=== PATIENT | male | born 1965 | race Caucasian/White ===

== ENCOUNTER 2019-05-03 05:54 | Observation (INO) | payer BC ==
[2019-05-03 06:33] LABS: ABSOLUTE BASOPHILS # (AUTO) 0.1 10^3/uL (0.0-0.2); ABSOLUTE EOSINOPHILS # (AUTO) 0.2 10^3/uL (0.0-0.6); ABSOLUTE MONOCYTES (AUTO) 0.4 10^3/uL (0.1-1.4); ABSOLUTE NEUT (AUTO) 3.2 10^3/uL (1.7-8.2); BASOPHILS % (AUTO) 1.1 % (0-2); EOSINOPHILS % (AUTO) 3.4 % (0-6); HEMATOCRIT 46.1 % (37.9-51.0); HEMOGLOBIN 16.1 g/dL (13.5-17.0); LYMPHOCYTES % (AUTO) 33.9 % (13-45); MEAN CORPUSCULAR HEMOGLOBIN 31.5 pg (27.0-33.4); MEAN CORPUSCULAR HGB CONC 34.9 g/dL (32.0-36.0); MEAN CORPUSCULAR VOLUME 90 fl (80-97); MONOCYTES % (AUTO) 6.8 % (3-13); PLATELET COUNT 282 10^3/uL (150-450); RED BLOOD COUNT 5.11 10^6/uL (4.35-5.55); RED CELL DISTRIBUTION WIDTH 14.6 % (11.5-14.0); SEGMENTED NEUTROPHILS % (AUTO) 54.8 % (42-78); TOTAL CELLS COUNTED % (AUTO) 100 %; WHITE BLOOD COUNT 5.8 10^3/uL (4.0-10.5)
--- NOTE | 2019-05-03 06:44 | RADIOLOGY REPORT (SQ) ---
EXAM DESCRIPTION: XR CHEST 1 VIEW COMPLETED DATE/TME: 05/03/2019 06:12 CLINICAL HISTORY: 54 years, Male, dyspnea, h/o copd COMPARISON: None. NUMBER OF VIEWS: 1 TECHNIQUE: Portable chest LIMITATIONS: None. FINDINGS: The heart size is normal. Underlying emphysema. Scarring in the lung bases. No pneumothorax IMPRESSION: Underlying emphysema. copyright 2010 [employer]- All Rights Reserved
[2019-05-03 06:54] LABS: ALBUMIN 4.6 g/dL (3.5-5.0); ALKALINE PHOSPHATASE 84 U/L (38-126); ANION GAP 10 (5-19); ASPARTATE AMINO TRANSFERASE 27 U/L (17-59); BILIRUBIN,DIRECT 0.1 mg/dL (0.0-0.4); BILIRUBIN,TOTAL 0.5 mg/dL (0.2-1.3); BLOOD UREA NITROGEN 12 mg/dL (7-20); CARBON DIOXIDE 27 mmol/L (22-30); CHLORIDE 104 mmol/L (98-107); GLUCOSE 118 mg/dL (75-110); POTASSIUM 4.5 mmol/L (3.6-5.0); TOTAL PROTEIN 7.6 g/dL (6.3-8.2)
[2019-05-03 07:05] LABS: NT PRO BNP 31 pg/mL (<125)
[2019-05-03 07:06] LABS: TROPONIN I < 0.012 ng/mL
--- NOTE | 2019-05-03 07:34 | ER Document Report ---
Entered by MAURI HERRERA SCRIBE 05/03/19 0613 Acting as scribe for:KATHY HAMILTON IV, MD ED Respiratory Problem - General Chief Complaint: Breathing Difficulty Stated Complaint: DIFFICULTY BREATHING Time Seen by Provider: 05/03/19 06:07 Mode of Arrival: Medic Information source: Patient Notes: Patient is a 54-year-old male with COPD that presents to the emergency department today with complaints of shortness of breath. Patient states that his shortness of breath began approximately x4 days ago but he adds that it became much worse this morning when he woke up. Patient called 911 yesterday and EMS went to his house but he did not want to be brought here at that time. Patient states this morning when he woke up he did a home nebulizer treatment and then called EMS. EMS states on arrival the patient had a room air oxygen saturation of 86%. EMS administered 3 DuoNeb treatments, 2 g of magnesium, and [facility] Pertinent PMHx: COPD PCP: Dr. Herrera TRAVEL OUTSIDE OF THE [place] IN LAST 30 DAYS: No - Related Data Allergies/Adverse Reactions: No Known Allergies Allergy (Unverified 05/03/19 06:13) Home Medications: Albuterol Past Medical History - General Information source: Patient - Social History Smoking Status: Smoker,Current Status Unk Frequency of alcohol use: None Drug Abuse: None Lives with: Family Family History: COPD Patient has suicidal ideation: No Patient has homicidal ideation: No Pulmonary Medical History: Reports: Hx COPD Review of Systems - Review of Systems Constitutional: No symptoms reported EENT: No symptoms reported Cardiovascular: denies: Chest pain Respiratory: See HPI, Short of breath Gastrointestinal: No symptoms reported Genitourinary: No symptoms reported Male Genitourinary: No symptoms reported Musculoskeletal: No symptoms reported Skin: No symptoms reported Hematologic/Lymphatic: No symptoms reported Neurological/Psychological: No symptoms reported -: Yes All other systems reviewed and negative Physical Exam - Vital signs Vitals: Resp Pulse Ox 28 H 100 05/03/19 05:55 05/03/19 05:55 - Notes Notes: Physical Exam: General: Alert, appears acutely short of breath, on bi-pap. HEENT: Normocephalic. Atraumatic. PERRL. Extraocular movements intact. Oropharynx clear. Neck: Supple. Non-tender. Respiratory: Moderate respiratory distress, accessory muscle usage. On Bi-pap, diminished breath sounds bilaterally. Cardiovascular: Regular rate and rhythm. Abdominal: Normal Inspection. Non-tender. No distension. Normal Bowel Sounds. Back: No gross abnormalities. Extremities: Moves all four extremities. Upper extremities: Normal inspection. Normal ROM. Lower extremities: Normal inspection. No edema. Normal ROM. Neurological: Normal cognition. AAOx4. Normal speech. Psychological: Normal affect. Normal Mood. Skin: Warm. Dry. Normal color. Course - Re-evaluation Re-evalutation: 05/03/19 07:[address] Herrera about potential admission 05/03/19 07:40 Awaiting return call from Dr. Herrera - Vital Signs Vital signs: Temp Pulse Resp BP Pulse Ox 97.6 F 97 20 113/79 100 05/03/19 06:13 05/03/19 06:04 05/03/19 08:00 05/03/19 08:00 05/03/19 08:00 - Laboratory Result Diagrams: 05/03/19 06:20 05/03/19 06:20 Laboratory results interpreted by me: 05/03/19 05/03/19 06:20 06:20 RDW 14.6 H Glucose 118 H - EKG Interpretation by Me Additional EKG results interpreted by me: 05/03/19 08:52 EKG performed on 04/02/2019 at 0604 hrs. was interpreted by this MD. Findings: Normal sinus rhythm, heart rate 99 normal axis, P waves preceding QRS complexes, narrow QRS present, ST segments nonspecific. Impression normal sinus rhythm with nonspecific ST segments. Discharge - Discharge Clinical Impression: COPD with exacerbation Condition: Good Disposition: ADMITTED INPATIENT Admitting Provider: Javier Unit Admitted: IMCU I personally performed the services described in the documentation, reviewed and edited the documentation which was dictated to the scribe in my presence, and it accurately records my words and actions.
--- NOTE | 2019-05-03 11:52 | EKG REPORT ---
SEVERITY:- OTHERWISE NORMAL ECG - SINUS TACHYCARDIA : Confirmed by: Maria Del Carmen Alvarez MD 03-May-2019 11:51:20
[2019-05-03 14:14] LABS: ARTERIAL BLOOD BASE EXCESS -1.3 mmol/L; ARTERIAL BLOOD H2CO3 1.11 mmol/L (1.05-1.35); ARTERIAL BLOOD HCO3 22.9 mmol/L (20-24); ARTERIAL BLOOD O2 SATURATION 92.1 % (94-98); ARTERIAL BLOOD PCO2 36.9 mmHg (35-45); ARTERIAL BLOOD PH 7.41 (7.35-7.45)
[2019-05-03 14:18] LABS: ARTERIAL BLOOD FIO2 ROOM AIR 2
[2019-05-03] MEDS ORDERED: DIPHENHYDRAMINE HCL 50 MG/ML VIAL ONE (15:08)
[2019-05-03] MEDS ORDERED: FAMOTIDINE INJ/PF 20 MG/2 ML SDV IV ONE ×2 (15:09→15:30)
[2019-05-03] MEDS ORDERED: DIPHENHYDRAMINE HCL 50 MG/ML VIAL IV ONE (15:30)
--- NOTE | 2019-05-03 16:05 | PDOC H&P ---
History of Present Illness Admission Date/PCP: 05/03/19 08:59 History of Present Illness: ADELSO PATTON is a 54 year old male, he came to the emergency room for evaluation of shortness of breath, in the emergency room he was treated, he required noninvasive positive pressure ventilation in the ER, he was treated with bronchodilators, IV steroids, the ED physician felt patient needed to be admitted to the hospital for further management of his symptoms. The arterial blood gas on ambient air, pH 7.4, PO2 62, PCO2 36.9, bicarbonate 22.9, he has slight hypoxemia, I reviewed the chest x-ray he has flattened diaphragm overexpanded lung consistent with emphysema. CT angiogram of the chest was obtained, It demonstrated a large bullae at the apex of the right lung, there was no pulmonary embolus it showed severe bilateral emphysema. Patient came in this morning, when I saw him on the floor, he was comfortable, not in any respiratory distress. I believe he could be discharged home today he was again advised of the need for complete tobacco cessation, he told me that he has stop ped smoking Past Medical History Pulmonary Medical History: Reports: Chronic Obstructive Pulmonary Disease (COPD) Social History Lives with: Family Smoking Status: Former Smoker Electronic Cigarette use?: No Number of Years Smokin Last Time Smoked: 10/16/2018 Frequency of Alcohol Use: Occasional Hx Recreational Drug Use: No Hx Prescription Drug Abuse: No - Advance Directive Resuscitation Status: Full Code Family History Family History: COPD Parental Family History Reviewed: Yes Children Family History Reviewed: Yes Sibling(s) Family History Reviewed.: Yes Medication/Allergy Home Medications: Albuterol Sulfate [Albuterol Sulfate Hfa] 2 puff IH Q4HP PRN 05/03/19 Albuterol Sulfate [Ventolin 0.083% Neb 2.5 mg/3 mL Ampul] 3 ml NEB RTQ6HP PRN 05/03/19 Fluticasone/Umeclidin/Vilanter [Trelegy 100-62.5-25 Mcg Ellipta 14 Dose/Dpi] 1 each IH DAILY 05/03/19 Nicotine [Nicoderm 21 mg/24 Hr Transderm Patch] 1 patch TD DAILY 05/03/19 Polyethylene Glycol 3350 [Miralax Powder 17 gm/Packet] 1 packet PO DAILY 05/03/19 Psyllium Husk (with Sugar) [Metamucil Packet] 3.4 gm PO DAILY 05/03/19 Roflumilast [Daliresp 500 Mcg Tablet] 500 mcg PO DAILY 05/03/19 Allergies/Adverse Reactions: No Known Allergies Allergy (Unverified 05/03/19 06:13) Review of Systems Constitutional: ABSENT: chills, fever(s), headache(s), weight gain, weight loss Eyes: ABSENT: visual disturbances Ears: ABSENT: hearing changes Cardiovascular: ABSENT: chest pain, dyspnea on exertion, edema, orthropnea, palpitations Respiratory: PRESENT: dyspnea. ABSENT: cough, hemoptysis Gastrointestinal: ABSENT: abdominal pain, constipation, diarrhea, hematemesis, hematochezia, nausea, vomiting Genitourinary: ABSENT: dysuria, hematuria Musculoskeletal: ABSENT: joint swelling Integumentary: ABSENT: rash, wounds Neurological: ABSENT: abnormal gait, abnormal speech, confusion, dizziness, focal weakness, syncope Psychiatric: ABSENT: anxiety, depression, homidical ideation, suicidal ideation Endocrine: ABSENT: cold intolerance, heat intolerance, menstrual abnormalities, polydipsia, polyuria Hematologic/Lymphatic: ABSENT: easy bleeding, easy bruising, lymphadenopathy Physical Exam Vital Signs: Temp Pulse Resp BP Pulse Ox 97.9 F 94 19 104/68 95 05/03/19 11:45 05/03/19 14:00 05/03/19 11:45 05/03/19 11:45 05/03/19 11:59 Intake & Output 05/02/19 05/03/19 05/04/19 06:59 06:59 06:59 Weight 76.7 kg 75.8 kg General appearance: PRESENT: no acute distress, well-developed, well-nourished Head exam: PRESENT: atraumatic, normocephalic Eye exam: PRESENT: conjunctiva pink, EOMI, PERRLA. ABSENT: scleral icterus Ear exam: PRESENT: normal external ear exam Mouth exam: PRESENT: moist, tongue midline Neck exam: PRESENT: full ROM. ABSENT: carotid bruit, JVD, lymphadenopathy, thyromegaly Cardiovascular exam: PRESENT: RRR. ABSENT: diastolic murmur, rubs, systolic murmur Pulses: PRESENT: normal dorsalis pedis pul, +2 pedal pulses bilateral Vascular exam: PRESENT: normal capillary refill GI/Abdominal exam: PRESENT: normal bowel sounds, soft. ABSENT: distended, guarding, mass, organolmegaly, rebound, tenderness Rectal exam: PRESENT: deferred Neurological exam: PRESENT: alert, awake, oriented to person, oriented to place, oriented to time, oriented to situation, CN II-XII grossly intact. ABSENT: motor sensory deficit Psychiatric exam: PRESENT: appropriate affect, normal mood. ABSENT: homicidal ideation, suicidal ideation Skin exam: PRESENT: dry, intact, warm. ABSENT: cyanosis, rash Results Laboratory Results: 05/03/19 06:20 05/03/19 06:20 05/03/19 05/03/19 05/03/19 06:20 06:20 13:50 WBC 5.8 RBC 5.11 Hgb 16.1 Hct 46.1 MCV 90 MCH 31.5 MCHC 34.9 RDW 14.6 H Plt Count 282 Seg Neutrophils % 54.8 Carbonic Acid 1.11 HCO3/H2CO3 Ratio 20:1 ABG pH 7.41 ABG pCO2 36.9 ABG pO2 62.0 L ABG HCO3 22.9 ABG O2 Saturation 92.1 L ABG Base Excess -1.3 FiO2 ROOM AIR 2 Sodium 140.8 Potassium 4.5 Chloride 104 Carbon Dioxide 27 Anion Gap 10 BUN 12 Creatinine 1.09 Est GFR ( Amer) > 60 Glucose 118 H Calcium 10.0 Total Bilirubin 0.5 AST 27 Alkaline Phosphatase 84 Total Protein 7.6 Albumin 4.6 05/03/19 06:20 Troponin I < 0.012 NT-Pro-B Natriuret Pep 31 Impressions: Chest X-Ray 05/03/19 06:12 IMPRESSION: Underlying emphysema. copyright 2010 [employer]- All Rights Reserved Assessment & Plan - Diagnosis (1) COPD with exacerbation Is this a current diagnosis for this admission?: Yes Plan: Patient was admitted for COPD with acute exacerbation, on auscultation of his lung there is no wheezing CTA did not show any pulmonary embolism there is no focal consolidation to suggest pneumonia patient will be discharged home to [facility]
--- NOTE | 2019-05-03 16:13 | RADIOLOGY REPORT (SQ) ---
EXAM DESCRIPTION: CTA CHEST COMPLETED DATE/TIME: 05/03/2019 3:43 pm REASON FOR STUDY: hypoxemia r/o PE . Shortness of breath. COMPARISON: Chest x-ray 05/03/2019. TECHNIQUE: CT scan of the chest performed using helical scanning technique with dynamic intravenous contrast injection. Images reviewed with lung, soft tissue and bone windows. Reconstructed coronal and sagittal MPR images reviewed. Additional 3 dimensional post-processing performed to develop Maximal Intensity Projection images (TX P). All images stored on PACS. All CT scanners at this facility use dose modulation, iterative reconstruction, and/or weight based d osing when appropriate to reduce radiation dose to as low as reasonably achievable (ALARA). [facility]: Dose Right [facility]: CareDose [facility]: Dose Right [facility]: Teradose 4D [facility]: iClinical CONTRAST TYPE AND DOSE: contrast/concentration: Isovue 350.00 mg/ml; Total Contrast Delivered: 61.0 ml; Total Saline Delivered: 80.0 ml Contrast bolus adequate for pulmonary arteries and aorta. RENAL FUNCTION: Creatinine 1.09 RADIATION DOSE: CT Rad equipment meets quality standard of care and radiation dose reduction techniq ues were employed. CTDIvol: 14.3 - 26.4 mGy. DLP: 574 mGy-cm. . LIMITATIONS: None. FINDINGS: LUNGS AND PLEURA: There are bilateral emphysematous changes. There is a 9.5 cm bulla at t he right lung apex. No consolidation, pneumothorax or pleural effusion. AORTA AND GREAT VESSELS: No thoracic aortic aneurysm or acute dissection. HEART: No pericardial effusion. No significant coronary artery calcifications. PULMONARY ARTERIES: No emboli visualized in the main pulmonary arteries or the segmental branches. HILAR AND MEDIASTINAL STRUCTURES: No identified masses or abnormal nodes. HARDWARE: None in the chest. UPPER ABDOMEN: No significant findings. Limited exam. THYROID AND OTHER SOFT TISSUES: No masses. No adenopathy. BONES: No acute or significant finding. 3D MIPS: Confirm above findings. IMPRESSION: No pulmonary emboli. Emphysema with a large bulla at the right lung apex. COMMENT: Quality ID # [id number]: Final reports with documentation of one or more dose reduction techniques (e.g., Automated exposure control, adjustment of the mA and/or kV according to patient size, use of iterative reconstruction technique) TECHNICAL DOCUMENTATION: JOB ID: [id number] 2011 [employer]- All Rights Reserved Reading location - IP/workstation name: [email or web address]
[2019-05-03 16:20] VITALS: BP 119/78
--- NOTE | 2019-05-03 17:10 | PDOC DISCHARGE SUMMARY ---
Impression - Admit/DC Date/PCP Admission Date/Primary Care Provider: 05/03/19 08:59 Discharge Date: 05/03/19 - Discharge Diagnosis (1) COPD with exacerbation Is this a current diagnosis for this admission?: Yes - Additional Information Resuscitation Status: Full Code Discharge Activity: Activity As Tolerated Prescriptions: Prednisone 40 mg PO DAILY #7 tablet Azithromycin [Zithromax] 250 mg PO DAILY #7 tablet Home Medications: Albuterol Sulfate [Albuterol Sulfate Hfa] 2 puff IH Q4HP PRN 05/03/19 Albuterol Sulfate [Ventolin 0.083% Neb 2.5 mg/3 mL Ampul] 3 ml NEB RTQ6HP PRN 05/03/19 Azithromycin [Zithromax] 250 mg PO DAILY #7 tablet 05/03/19 Fluticasone/Umeclidin/Vilanter [Trelegy 100-62.5-25 Mcg Ellipta 14 Dose/Dpi] 1 each IH DAILY 05/03/19 Nicotine [Nicoderm 21 mg/24 Hr Transderm Patch] 1 patch TD DAILY 05/03/19 Polyethylene Glycol 3350 [Miralax Powder 17 gm/Packet] 1 packet PO DAILY 05/03/19 Prednisone 40 mg PO DAILY #7 tablet 05/03/19 Psyllium Husk (with Sugar) [Metamucil Packet] 3.4 gm PO DAILY 05/03/19 Roflumilast [Daliresp 500 Mcg Tablet] 500 mcg PO DAILY 05/03/19 History of Present Illiness History of Present Illness: ADELSO PATTON is a 54 year old male, he came to the emergency room for evaluation of shortness of breath, in the emergency room he was treated, he required noninvasive positive pressure ventilation in the ER, he was treated with bronchodilators, IV steroids, the ED physician felt patient needed to be admitted to the hospital for further management of his symptoms. The arterial blood gas on ambient air, pH 7.4, PO2 62, PCO2 36.9, bicarbonate 22.9, he has slight hypoxemia, I reviewed the chest x-ray he has flattened diaphragm overexpanded lung consistent with emphysema. CT angiogram of the chest was obtained, It demonstrated a large bullae at the apex of the right lung, there was no pulmonary embolus it showed severe bilateral emphysema. Patient came in this morning, when I saw him on the floor, he was comfortable, not in any respiratory distress. I believe he could be discharged home today he was again advised of the need for complete tobacco cessation, he told me that he has stopped smoking Hospital Course Hospital Course: Patient was admitted for the management of acute COPD exacerbation, is stable I felt he could be discharged home to continue treatment outpatient. He came in earlier this morning, arterial blood gas was done, pH was normal, PO2 was 62 because of the relative hypoxemia CT angiogram of the chest was obtained, there was no pulmonary embolus demonstrated but he has severe bilateral emphysema with a large bullae on the apex of the right lung Physical Exam Vital Signs: Temp Pulse Resp BP Pulse Ox 97.5 F 86 16 119/78 100 05/03/19 15:58 05/03/19 15:58 05/03/19 15:58 05/03/19 15:58 05/03/19 15:58 Intake & Output 05/02/19 05/03/19 05/04/19 06:59 06:59 06:59 Weight 76.7 kg 75.8 kg General appearance: PRESENT: no acute distress Eye exam: PRESENT: PERRLA Respiratory exam: PRESENT: clear to auscultation jc Cardiovascular exam: PRESENT: +S1, +S2 Neurological exam: PRESENT: alert Results Laboratory Results: WBC 5.8 10^3/uL (4.0-10.5) 05/03/19 06:20 RBC 5.11 10^6/uL (4.35-5.55) 05/03/19 06:20 Hgb 16.1 g/dL (13.5-17.0) 05/03/19 06:20 Hct 46.1 % (37.9-51.0) 05/03/19 06:20 MCV 90 fl (80-97) 05/03/19 06:20 MCH 31.5 pg (27.0-33.4) 05/03/19 06:20 MCHC 34.9 g/dL (32.0-36.0) 05/03/19 06:20 RDW 14.6 % (11.5-14.0) H 05/03/19 06:20 Plt Count 282 10^3/uL (150-450) 05/03/19 06:20 Lymph % (Auto) 33.9 % (13-45) 05/03/19 06:20 [place] % (Auto) 6.8 % (3-13) 05/03/19 06:20 Eos % (Auto) 3.4 % (0-6) 05/03/19 06:20 Baso % (Auto) 1.1 % (0-2) 05/03/19 06:20 Absolute Neuts (auto) 3.2 10^3/uL (1.7-8.2) 05/03/19 06:20 Absolute Lymphs (auto) 2.0 10^3/uL (0.5-4.7) 05/03/19 06:20 Absolute Monos (auto) 0.4 10^3/uL (0.1-1.4) 05/03/19 06:20 Absolute Eos (auto) 0.2 10^3/uL (0.0-0.6) 05/03/19 06:20 Absolute Basos (auto) 0.1 10^3/uL (0.0-0.2) 05/03/19 06:20 Seg Neutrophils % 54.8 % (42-78) 05/03/19 06:20 Carbonic Acid 1.11 mmol/L (1.05-1.35) 05/03/19 13:50 HCO3/H2CO3 Ratio 20:1 05/03/19 13:50 ABG pH 7.41 (7.35-7.45) 05/03/19 13:50 ABG pCO2 36.9 mmHg (35-45) 05/03/19 13:50 ABG pO2 62.0 mmHg (80-100) L 05/03/19 13:50 ABG HCO3 22.9 mmol/L (20-24) 05/03/19 13:50 ABG Total CO2 24.0 mmol/L (23-27) 05/03/19 13:50 ABG O2 Saturation 92.1 % (94-98) L 05/03/19 13:50 ABG Base Excess -1.3 mmol/L 05/03/19 13:50 FiO2 ROOM AIR 2 05/03/19 13:50 Sodium 140.8 mmol/L (137-145) 05/03/19 06:20 Potassium 4.5 mmol/L (3.6-5.0) 05/03/19 06:20 Chloride 104 mmol/L (98-107) 05/03/19 06:20 Carbon Dioxide 27 mmol/L (22-30) 05/03/19 06:20 Anion Gap 10 (5-19) 05/03/19 06:20 BUN 12 mg/dL (7-20) 05/03/19 06:20 Creatinine 1.09 mg/dL (0.52-1.25) 05/03/19 06:20 Est GFR ( Amer) > 60 (>60) 05/03/19 06:20 Est GFR (MDRD) Non-Af > 60 (>60) 05/03/19 06:20 Glucose 118 mg/dL (75-110) H 05/03/19 06:20 Calcium 10.0 mg/dL (8.4-10.2) 05/03/19 06:20 Total Bilirubin 0.5 mg/dL (0.2-1.3) 05/03/19 06:20 Direct Bilirubin 0.1 mg/dL (0.0-0.4) 05/03/19 06:20 Neonat Total Bilirubin Not Reportable 05/03/19 06:20 Neonat Direct Bilirubin Not Reportable 05/03/19 06:20 Neonat Indirect Bili Not Reportable 05/03/19 06:20 AST 27 U/L (17-59) 05/03/19 06:20 ALT 23 U/L (<50) 05/03/19 06:20 Alkaline Phosphatase 84 U/L (38-126) 05/03/19 06:20 Troponin I < 0.012 ng/mL 05/03/19 06:20 NT-Pro-B Natriuret Pep 31 pg/mL (<125) 05/03/19 06:20 Total Protein 7.6 g/dL (6.3-8.2) 05/03/19 06:20 Albumin 4.6 g/dL (3.5-5.0) 05/03/19 06:20 05/03/19 06:20 Troponin I < 0.012 NT-Pro-B Natriuret Pep 31 Impressions: Chest/Abdomen CTA 05/03/19 00:00 IMPRESSION: No pulmonary emboli. Emphysema with a large bulla at the right lung apex. Chest X-Ray 05/03/19 06:12 IMPRESSION: Underlying emphysema. copyright 2011 [employer]- All Rights Reserved Stroke Is this a Stroke Patient?: No Acute Heart Failure - Is this a Heart Failure Patient?: No
== END 2019-05-03 17:50 | disposition home or self-care (01) ==
LOC: ER 05:54 → EH 08:59 → INTOOBSV 08:59 → 3W 10:58
PROVIDERS: ADMIT Internal Medicine; ATTEND Internal Medicine
DX: J44.1 Chronic obstructive pulmonary disease with (acute) exacerbation (principal); R09.02 Hypoxemia; Z79.899 Other long term (current) drug therapy; Z87.891 Personal history of nicotine dependence; Z82.5 Family history of asthma and other chronic lower respiratory diseases
CPT/HCPCS: 93005; 99285; 36415; 82803; 85025; 80053; 84484; 83880; 71045; 71275; 93010; 36600; 94660; G0378 ×2; J1200; S0028

== ENCOUNTER 2019-05-14 08:13 | Observation (INO) | payer BC ==
[2019-05-14] MEDS ORDERED: NORMAL SALINE 1000 ML 1,000 ML IV ONE (08:38)
[2019-05-14 08:44] LABS: ABSOLUTE EOSINOPHILS # (AUTO) 0.1 10^3/uL (0.0-0.6); ABSOLUTE LYMPHOCYTES (AUTO) 4.2 10^3/uL (0.5-4.7); ABSOLUTE MONOCYTES (AUTO) 0.7 10^3/uL (0.1-1.4); ABSOLUTE NEUT (AUTO) 7.2 10^3/uL (1.7-8.2); BASOPHILS % (AUTO) 0.4 % (0-2); EOSINOPHILS % (AUTO) 0.7 % (0-6); HEMATOCRIT 45.9 % (37.9-51.0); HEMOGLOBIN 15.5 g/dL (13.5-17.0); LYMPHOCYTES % (AUTO) 34.1 % (13-45); MEAN CORPUSCULAR HEMOGLOBIN 31.1 pg (27.0-33.4); MEAN CORPUSCULAR HGB CONC 33.8 g/dL (32.0-36.0); MEAN CORPUSCULAR VOLUME 92 fl (80-97); MONOCYTES % (AUTO) 5.9 % (3-13); PLATELET COUNT 329 10^3/uL (150-450); RED BLOOD COUNT 4.99 10^6/uL (4.35-5.55); RED CELL DISTRIBUTION WIDTH 14.2 % (11.5-14.0); SEGMENTED NEUTROPHILS % (AUTO) 58.9 % (42-78); TOTAL CELLS COUNTED % (AUTO) 100 %; WHITE BLOOD COUNT 12.2 10^3/uL (4.0-10.5)
[2019-05-14 08:56] LABS: BLOOD UREA NITROGEN 18 mg/dL (7-20); CALCIUM 8.9 mg/dL (8.4-10.2); CARBON DIOXIDE 29 mmol/L (22-30); CHLORIDE 104 mmol/L (98-107); GLUCOSE 98 mg/dL (75-110); POTASSIUM 4.5 mmol/L (3.6-5.0)
[2019-05-14 08:57] LABS: ALBUMIN 4.2 g/dL (3.5-5.0); ALKALINE PHOSPHATASE 68 U/L (38-126); ANION GAP 8 (5-19); ASPARTATE AMINO TRANSFERASE 23 U/L (17-59); BILIRUBIN,TOTAL 0.4 mg/dL (0.2-1.3); CREATINE KINASE 53 U/L (55-170); TOTAL PROTEIN 6.8 g/dL (6.3-8.2)
[2019-05-14 09:20] LABS: APPEARANCE,URINE CLEAR; BILIRUBIN,URINE NEGATIVE (NEGATIVE); COLOR,URINE YELLOW; GLUCOSE, URINE NEGATIVE (NEGATIVE); KETONES,URINE NEGATIVE (NEGATIVE); LEUKOCYTE ESTERASE,URINE NEGATIVE (NEGATIVE); NITRITE,URINE NEGATIVE (NEGATIVE); PROTEIN,URINE NEGATIVE (NEGATIVE); URINE SPECIFIC GRAVITY 1.017; UROBILINOGEN,URINE NEGATIVE mg/dL (<2.0)
--- NOTE | 2019-05-14 09:22 | RADIOLOGY REPORT (SQ) ---
EXAM DESCRIPTION: CHEST SINGLE VIEW COMPLETED DATE/TIME: 05/14/2019 9:07 am REASON FOR STUDY: COPD exacerbation COMPARISON: AP view of the chest from 05/03/2019. EXAM PARAMETERS: NUMBER OF VIEWS: One view. TECHNIQUE: Single frontal radiographic view of the chest acquired. RADIATION DOSE: NA LIMITATIONS: None. FINDINGS: LUNGS AND PLEURA: Upper lobe predominant emphysema without a superimposed consolidation, s izeable pleural effusion or pneumothorax. MEDIASTINUM AND HILAR STRUCTURES: Stable mediastinal and hilar contours. HEART AND VASCULAR STRUCTURES: Stable cardiac silhouette. BONES: No acute findings. HARDWARE: None in the chest. OTHER: No acute finding. IMPRESSION: Emphysema without a superimposed acute cardiopulmonary process. TECHNICAL DOCUMENTATION: JOB ID: [id number] [employer] All Rights Reserved Reading location - IP/workstation name: [email or web address]
[2019-05-14] MEDS ORDERED: IPRATROPIUM/ALBUTEROL 0.5-2.5 MG/3 ML AMPUL NEB ONE (10:00)
--- NOTE | 2019-05-14 10:28 | ER Document Report ---
Entered by MAURI HERRERA SCRIBE 05/14/19 0839 Acting as scribe for:JUS ADAMS MD ED Respiratory Problem - General Chief Complaint: Breathing Difficulty Stated Complaint: DIFFICULTY BREATHING Time Seen by Provider: 05/14/19 08:28 Mode of Arrival: Ambulatory Information source: Patient Notes: This 54-year-old male patient presents to the emergency department today with complaints of respiratory distress. Patient was seen here about a week ago and was admitted on 05/03 for similar symptoms. Patient was discharged home that same day on a Z-Maged and prednisone. Patient was seen by his PCP, Doctor Herrera yesterday and was prescribed another course of prednisone. Patient states he has actually felt fine since discharge on 05/03 until around 2:00am this morning. Patient reports that he took x3 nebulizer treatments prior to arrival. Patient reports that all of the treatments seemed to help but only for a short period of time. EMS reported a room air oxygen saturation of 89% on arrival with an end-tidal CO2 of 28. Patient does mention that he has noticed that his breathing has only become worse since he returned back home in [place]. 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 Patient states there are dogs in his house and he thinks this might be causing his symptoms. Pertinent PMHx/PSHx: COPD - additional PMHx/PSHx not pertinent to this visit as recorded. PCP: Doctor Herrera TRAVEL OUTSIDE OF THE [place] IN LAST 30 DAYS: No - Related Data Allergies/Adverse Reactions: No Known Allergies Allergy (Verified 05/14/19 08:28) Past Medical History - General Information source: Patient, H Records - Social History Smoking Status: Current Every Day Smoker Cigarette use (# per day): Yes Frequency of alcohol use: None Drug Abuse: None Lives with: Family Family History: Reviewed & Not Pertinent, COPD Pulmonary Medical History: Reports: Hx COPD Review of Systems - Review of Systems Constitutional: No symptoms reported EENT: No symptoms reported Cardiovascular: No symptoms reported Respiratory: See HPI, Short of breath Gastrointestinal: No symptoms reported Genitourinary: No symptoms reported Male Genitourinary: No symptoms reported Musculoskeletal: No symptoms reported Skin: No symptoms reported Hematologic/Lymphatic: No symptoms reported Neurological/Psychological: No symptoms reported -: Yes All other systems reviewed and negative Physical Exam - Vital signs Vitals: Temp Resp Pulse Ox 97.8 F 22 H 100 05/14/19 08:16 05/14/19 08:16 05/14/19 08:16 - Notes Notes: Physical Exam: General: Alert, appears well, on BiPAP. HEENT: Normocephalic. Atraumatic. PERRL. Extraocular movements intact. Oropharynx clear. Neck: Supple. Non-tender. Respiratory: Patient on BiPAP, mild wheezing now without rhonchi. Patient has had 3 at home nebulizer treatments and also received Solu-Medrol and was put on CPAP by EMS prior to this lung exam. Cardiovascular: Regular rate and rhythm. Abdominal: Normal Inspection. Non-tender. No distension. Normal Bowel Sounds. Back: No gross abnormalities. Extremities: Moves all four extremities. Upper extremities: Normal inspection. Normal ROM. Lower extremities: Normal inspection. No edema. Normal ROM. Neurological: Normal cognition. AAOx4. Normal speech. Psychological: Normal affect. Normal Mood. Skin: Warm. Dry. Normal color. Course - Vital Signs Vital signs: Temp Pulse Resp BP Pulse Ox 97.8 F 21 H 117/80 100 05/14/19 08:16 05/14/19 11:01 05/14/19 11:00 05/14/19 11:01 - Laboratory Result Diagrams: 05/14/19 08:15 05/14/19 08:15 Laboratory results interpreted by me: 05/14/19 05/14/19 08:15 08:15 WBC 12.2 H RDW 14.2 H Creatine Kinase 53 L - Diagnostic Test Radiology reviewed: Image reviewed, Reports reviewed - Chest x-ray shows emphysema without infiltrates. - EKG Interpretation by Al EKG shows normal: Sinus rhythm, [place], Intervals, QRS Complexes, ST-T Waves Rate: Tachycardia - 106 - Consults Dr. Herrera Time consulted: 10:33 Consulted provider: will see as inpatient Discharge - Discharge Clinical Impression: Hypoxemia, COPD with exacerbation Disposition: ADMITTED INPATIENT Admitting Provider: Javier Unit Admitted: DEMARCUS Bartlett Attestation: 05/14/19 10:38 I personally performed the services described in the documentation, reviewed and edited the documentation which was dictated to the scribe in my presence, and it accurately records my words and actions. I personally performed the services described in the documentation, reviewed and edited the documentation which was dictated to the scribe in my presence, and it accurately records my words and actions.
[2019-05-14] MEDS ORDERED: NICOTINE 21 MG/24 HR PATCH.TD24 TD ONE (10:52)
[2019-05-14 14:20] VITALS: BP 120/74
[2019-05-14] MEDS ORDERED: ALBUTEROL SULFATE HFA (90 MCG/PUFF) 200 PUFF/8.5 GM MDI IH PRN (14:25)
[2019-05-14] MEDS ORDERED: POLYETHYLENE GLYCOL 3350 POWDER 17 GM/1 PACKET PO SCH (15:00)
[2019-05-14] MEDS ORDERED: ROFLUMILAST 500 MCG TABLET PO SCH (15:00)
--- NOTE | 2019-05-14 15:15 | PDOC H&P ---
History of Present Illness Admission Date/PCP: 05/14/19 10:58 LUCA FOY MD History of Present Illness: AEDLSO PATTON is a 54 year old male He has very severe chronic obstructive pu lmonary disease, he was recently admitted in this hospital on 05/03/2019 when he presented with shortness of breath at that time he had CT angiogram of the chest that demonstrated bilateral emphysematous changes with a 9.5 cm bulla at the right lung apex, the plain chest x-ray that was done also showed flattened diaphragm with some very severe COPD.I saw him in the office yesterday, for follow-up of his last hospital admission I prescribed azithromycin and prednisone for him. He stated that most of his symptoms" at night when he tried to lay flat in bed, he gets short of breath he believes is probably because of gas in his stomach that tends to impede his breathing but what I am hearing from him is that it seems that he has nocturnal hypoxemia this is provoked when he lay flat in bed because he has flattened diaphragm he will have increased work of breathing in supine position . He will need oxygen therapy at night to help him decrease work of breathing at night. He is not presently wheezing, I do not see any indication for inpatient care at this time, we can arrange nocturnal oxy gen therapy Past Medical History Pulmonary Medical History: Reports: Chronic Obstructive Pulmonary Disease (COPD) Social History Lives with: Family Smoking Status: Current Every Day Smoker Frequency of Alcohol Use: Occasional Hx Recreational Drug Use: No Hx Prescription Drug Abuse: No Family History Family History: Reviewed & Not Pertinent, COPD Parental Family History Reviewed: Yes Children Family History Reviewed: Yes Sibling(s) Family History Reviewed.: Yes Medication/Allergy Home Medications: Albuterol Sulfate [Proair HFA Inhalation Aerosol 8.5 gm MDI] 2 puff IH Q4HP PRN 05/14/19 Albuterol Sulfate [Ventolin 0.083% Neb 2.5 mg/3 mL Ampul] 3 ml NEB RTQ6HP PRN 05/14/19 Azithromycin [Zithromax 250 mg Tablet] 500 mg PO DAILY 05/14/19 Fluticasone/Umeclidin/Vilanter [Trelegy 100-62.5-25 Mcg Ellipta 14 Dose/Dpi] 1 puff IH DAILY 05/14/19 Nicotine [Nicoderm 21 mg/24 Hr Transderm Patch] 1 patch TD DAILY 05/14/19 Polyethylene Glycol 3350 [Miralax Powder 17 gm/Packet] 17 gm PO DAILY 05/14/19 Prednisone 10 mg PO DAILY 05/14/19 Psyllium Husk (with Sugar) [Metamucil Packet] 3.4 gm PO DAILY 05/14/19 Roflumilast [Daliresp 500 mcg Tablet] 500 mcg PO DAILY 05/14/19 Allergies/Adverse Reactions: No Known Allergies Allergy (Verified 05/14/19 08:28) Review of Systems Constitutional: ABSENT: chills, fever(s), headache(s), weight gain, weight loss Eyes: ABSENT: visual disturbances Ears: ABSENT: hearing changes Cardiovascular: ABSENT: chest pain, dyspnea on exertion, edema, orthropnea, palpitations Respiratory: PRESENT: dyspnea. ABSENT: cough, hemoptysis Gastrointestinal: ABSENT: abdominal pain, constipation, diarrhea, hematemesis, hematochezia, nausea, vomiting Genitourinary: ABSENT: dysuria, hematuria Musculoskeletal: ABSENT: joint swelling Integumentary: ABSENT: rash, wounds Neurological: ABSENT: abnormal gait, abnormal speech, confusion, dizziness, focal weakness, syncope Psychiatric: ABSENT: anxiety, depression, homidical ideation, suicidal ideation Endocrine: ABSENT: cold intolerance, heat intolerance, menstrual abnormalities, polydipsia, polyuria Hematologic/Lymphatic: ABSENT: easy bleeding, easy bruising, lymphadenopathy Physical Exam Vital Signs: Temp Pulse Resp BP Pulse Ox 97.7 F 101 H 22 H 120/74 95 05/14/19 14:13 05/14/19 14:13 05/14/19 13:00 05/14/19 14:13 05/14/19 14:13 Intake & Output 05/13/19 05/14/19 05/15/19 06:59 06:59 06:59 Intake Total 1000 Balance 1000 Weight 79.379 kg General appearance: PRESENT: no acute distress, well-developed, well-nourished Head exam: PRESENT: atraumatic, normocephalic Eye exam: PRESENT: conjunctiva pink, EOMI, PERRLA Ear exam: PRESENT: normal external ear exam Mouth exam: PRESENT: moist, tongue midline Neck exam: PRESENT: full ROM. ABSENT: carotid bruit, JVD, lymphadenopathy, thyromegaly Respiratory exam: PRESENT: decreased breath sounds Cardiovascular exam: PRESENT: RRR, +S1, +S2 Pulses: PRESENT: normal dorsalis pedis pul, +2 pedal pulses bilateral Vascular exam: PRESENT: normal capillary refill GI/Abdominal exam: PRESENT: normal bowel sounds, soft Rectal exam: PRESENT: deferred Neurological exam: PRESENT: alert, awake, oriented to person, oriented to place, oriented to time, oriented to situation, CN II-XII grossly intact. ABSENT: motor sensory deficit Psychiatric exam: PRESENT: appropriate affect, normal mood Skin exam: PRESENT: dry, intact, warm Results Laboratory Results: 05/14/19 08:15 05/14/19 08:15 05/14/19 05/14/19 05/14/19 08:15 08:15 08:57 WBC 12.2 H RBC 4.99 Hgb 15.5 Hct 45.9 MCV 92 MCH 31.1 MCHC 33.8 RDW 14.2 H Plt Count 329 Seg Neutrophils % 58.9 Sodium 140.5 Potassium 4.5 Chloride 104 Carbon Dioxide 29 Anion Gap 8 BUN 18 Creatinine 1.18 Est GFR ( Amer) > 60 Glucose 98 Calcium 8.9 Total Bilirubin 0.4 AST 23 Alkaline Phosphatase 68 Total Protein 6.8 Albumin 4.2 Urine Color YELLOW Urine Appearance CLEAR Urine pH 5.0 Ur Specific [place] 1.017 Urine Protein NEGATIVE Urine Glucose (UA) NEGATIVE Urine Ketones NEGATIVE Urine Blood NEGATIVE Urine Nitrite NEGATIVE Ur Leukocyte Esterase NEGATIVE Urine WBC (Auto) 1 Urine RBC (Auto) 0 05/14/19 05/14/19 08:15 08:15 Creatine Kinase 53 L Troponin I < 0.012 Impressions: Chest X-Ray 05/14/19 08:38 IMPRESSION: Emphysema without a superimposed acute cardiopulmonary process. Assessment & Plan - Diagnosis (1) Chronic obstructive pulmonary disease Qualifiers: COPD type: unspecified COPD Qualified Code(s): J44.9 - Chronic obstructive pulmonary disease, unspecified Is this a current diagnosis for this admission?: Yes Plan: Patient is not actively wheezing, he needs oxygen therapy is oxygen saturation dropped to 86% on ambulation, he does not need intravenous Solu-Medrol at this time is already on p.o. prednisone, Trelegy which he will continue. Discharge planning will make arrangement for O2 therapy (2) Hypoxemia Is this a current diagnosis for this admission?: Yes
--- NOTE | 2019-05-14 15:18 | PDOC DISCHARGE SUMMARY ---
Impression - Admit/DC Date/PCP Admission Date/Primary Care Provider: 05/14/19 10:58 LUCA FOY MD Discharge Date: 05/14/19 - Discharge Diagnosis (1) Chronic obstructive pulmonary disease Is this a current diagnosis for this admission?: Yes (2) Hypoxemia Is this a current diagnosis for this admission?: Yes - Additional Information Referrals: KARLA LAZARO MD [ACTIVE STAFF] - Follow up as needed Home Medications: Albuterol Sulfate [Proair HFA Inhalation Aerosol 8.5 gm MDI] 2 puff IH Q4HP PRN 05/14/19 Albuterol Sulfate [Ventolin 0.083% Neb 2.5 mg/3 mL Ampul] 3 ml NEB RTQ6HP PRN 05/14/19 Azithromycin [Zithromax 250 mg Tablet] 500 mg PO DAILY 05/14/19 Fluticasone/Umeclidin/Vilanter [Trelegy 100-62.5-25 Mcg Ellipta 14 Dose/Dpi] 1 puff IH DAILY 05/14/19 Nicotine [Nicoderm 21 mg/24 Hr Transderm Patch] 1 patch TD DAILY 05/14/19 Polyethylene Glycol 3350 [Miralax Powder 17 gm/Packet] 17 gm PO DAILY 05/14/19 Prednisone 10 mg PO DAILY 05/14/19 Psyllium Husk (with Sugar) [Metamucil Packet] 3.4 gm PO DAILY 05/14/19 Roflumilast [Daliresp 500 mcg Tablet] 500 mcg PO DAILY 05/14/19 History of Present Illiness History of Present Illness: ADELSO PATTON is a 54 year old male He has very severe chronic obstructive pulmonary disease, he was recently admitted in this hospital on 05/03/2019 when he presented with shortness of breath at that time he had CT angiogram of the chest that demonstrated bilateral emphysematous changes with a 9.5 cm bulla at the right lung apex, the plain chest x-ray that was done also showed flattened diaphragm with some very severe COPD.I saw him in the office yesterday, for follow-up of his last hospital admission I prescribed azithromycin and prednisone for him. He stated that most of his symptoms" at night when he tried to lay flat in bed, he gets short of breath he believes is probably because of gas in his stomach that tends to impede his breathing but what I am hearing from him is that it seems that he has nocturnal hypoxemia this is provoked when he lay flat in bed because he has flattened diaphragm he will have increased work of breathing in supine position . He will need oxygen therapy at night to help him decrease work of breathing at night. He is not presently wheezing, I do not see any indication for inpatient care at this time, we can arrange nocturnal oxygen therapy Hospital Course Hospital Course: Patient was admitted because of COPD, the oxygen saturation on room air on ambulation was 87%, he does not need inpatient care at this time he will be discharged home on oxygen therapy he will continue all other treatment. Is not overly in distress there is no wheezing on auscultation of his lung Physical Exam Vital Signs: Temp Pulse Resp BP Pulse Ox 97.7 F 101 H 22 H 120/74 95 05/14/19 14:13 05/14/19 14:13 05/14/19 13:00 05/14/19 14:13 05/14/19 14:13 Intake & Output 05/13/19 05/14/19 05/15/19 06:59 06:59 06:59 Intake Total 1000 Balance 1000 Weight 79.379 kg General appearance: PRESENT: no acute distress Head exam: PRESENT: other Eye exam: PRESENT: PERRLA Respiratory exam: PRESENT: clear to auscultation jc Cardiovascular exam: PRESENT: +S1, +S2 GI/Abdominal exam: PRESENT: soft Neurological exam: PRESENT: alert Results Laboratory Results: WBC 12.2 10^3/uL (4.0-10.5) H 05/14/19 08:15 RBC 4.99 10^6/uL (4.35-5.55) 05/14/19 08:15 Hgb 15.5 g/dL (13.5-17.0) 05/14/19 08:15 Hct 45.9 % (37.9-51.0) 05/14/19 08:15 MCV 92 fl (80-97) 05/14/19 08:15 MCH 31.1 pg (27.0-33.4) 05/14/19 08:15 MCHC 33.8 g/dL (32.0-36.0) 05/14/19 08:15 RDW 14.2 % (11.5-14.0) H 05/14/19 08:15 Plt Count 329 10^3/uL (150-450) 05/14/19 08:15 Lymph % (Auto) 34.1 % (13-45) 05/14/19 08:15 [place] % (Auto) 5.9 % (3-13) 05/14/19 08:15 Eos % (Auto) 0.7 % (0-6) 05/14/19 08:15 Baso % (Auto) 0.4 % (0-2) 05/14/19 08:15 Absolute Neuts (auto) 7.2 10^3/uL (1.7-8.2) 05/14/19 08:15 Absolute Lymphs (auto) 4.2 10^3/uL (0.5-4.7) 05/14/19 08:15 Absolute Monos (auto) 0.7 10^3/uL (0.1-1.4) 05/14/19 08:15 Absolute Eos (auto) 0.1 10^3/uL (0.0-0.6) 05/14/19 08:15 Absolute Basos (auto) 0.0 10^3/uL (0.0-0.2) 05/14/19 08:15 Seg Neutrophils % 58.9 % (42-78) 05/14/19 08:15 Sodium 140.5 mmol/L (137-145) 05/14/19 08:15 Potassium 4.5 mmol/L (3.6-5.0) 05/14/19 08:15 Chloride 104 mmol/L (98-107) 05/14/19 08:15 Carbon Dioxide 29 mmol/L (22-30) 05/14/19 08:15 Anion Gap 8 (5-19) 05/14/19 08:15 BUN 18 mg/dL (7-20) 05/14/19 08:15 Creatinine 1.18 mg/dL (0.52-1.25) 05/14/19 08:15 Est GFR ( Amer) > 60 (>60) 05/14/19 08:15 Est GFR (MDRD) Non-Af > 60 (>60) 05/14/19 08:15 Glucose 98 mg/dL (75-110) 05/14/19 08:15 Calcium 8.9 mg/dL (8.4-10.2) 05/14/19 08:15 Total Bilirubin 0.4 mg/dL (0.2-1.3) 05/14/19 08:15 Direct Bilirubin 0.0 mg/dL (0.0-0.4) 05/14/19 08:15 Neonat Total Bilirubin Not Reportable 05/14/19 08:15 Neonat Direct Bilirubin Not Reportable 05/14/19 08:15 Neonat Indirect Bili Not Reportable 05/14/19 08:15 AST 23 U/L (17-59) 05/14/19 08:15 ALT 28 U/L (<50) 05/14/19 08:15 Alkaline Phosphatase 68 U/L (38-126) 05/14/19 08:15 Creatine Kinase 53 U/L (55-170) L 05/14/19 08:15 Troponin I < 0.012 ng/mL 05/14/19 08:15 Total Protein 6.8 g/dL (6.3-8.2) 05/14/19 08:15 Albumin 4.2 g/dL (3.5-5.0) 05/14/19 08:15 Urine Color YELLOW 05/14/19 08:57 Urine Appearance CLEAR 05/14/19 08:57 Urine pH 5.0 (5.0-9.0) 05/14/19 08:57 Ur Specific [place] 1.017 05/14/19 08:57 Urine Protein NEGATIVE mg/dL (NEGATIVE) 05/14/19 08:57 Urine Glucose (UA) NEGATIVE mg/dL (NEGATIVE) 05/14/19 08:57 Urine Ketones NEGATIVE mg/dL (NEGATIVE) 05/14/19 08:57 Urine Blood NEGATIVE (NEGATIVE) 05/14/19 08:57 Urine Nitrite NEGATIVE (NEGATIVE) 05/14/19 08:57 Urine Bilirubin NEGATIVE (NEGATIVE) 05/14/19 08:57 Urine Urobilinogen NEGATIVE mg/dL (<2.0) 05/14/19 08:57 Ur Leukocyte Esterase NEGATIVE (NEGATIVE) 05/14/19 08:57 Urine WBC (Auto) 1 /HPF 05/14/19 08:57 Urine RBC (Auto) 0 /HPF 05/14/19 08:57 U Hyaline Cast (Auto) 4 /LPF 05/14/19 08:57 Squamous Epi Cells Auto <1 /HPF 05/14/19 08:57 Urine Mucus (Auto) RARE /LPF 05/14/19 08:57 Urine Ascorbic Acid NEGATIVE (NEGATIVE) 05/14/19 08:57 05/14/19 08:15 Troponin I < 0.012 Impressions: Chest X-Ray 05/14/19 08:38 IMPRESSION: Emphysema without a superimposed acute cardiopulmonary process. Stroke Is this a Stroke Patient?: No Acute Heart Failure - Is this a Heart Failure Patient?: No
[2019-05-14] MEDS ORDERED: FLUTICASONE/UMECLIDIN/VILANTER 100-62.5-25 MCG/DOSE IH SCH (15:30)
--- NOTE | 2019-05-14 23:42 | EKG REPORT ---
SEVERITY:- OTHERWISE NORMAL ECG - SINUS TACHYCARDIA : Confirmed by: Fahad Morrow 14-May-2019 23:41:59
== END 2019-05-14 17:40 | disposition home or self-care (01) ==
LOC: ER 08:13 → EH 10:58 → INTOOBSV 10:58 → 3W 13:45
PROVIDERS: ADMIT Internal Medicine; ATTEND Internal Medicine
DX: J44.9 Chronic obstructive pulmonary disease, unspecified (principal); R09.02 Hypoxemia; R00.0 Tachycardia, unspecified; F17.210 Nicotine dependence, cigarettes, uncomplicated; Z79.899 Other long term (current) drug therapy
CPT/HCPCS: 93005; 94640; 99285; 96360; 36415; 82550; 85025; 80053; 81001; 84484; 71045; 93010; 94660; G0378 ×2; J7030; J7620; J3490

== ENCOUNTER 2019-06-01 02:39 | Inpatient (IN) | payer BC ==
[2019-06-01] MEDS: ALBUTEROL SULFATE 0.083% NEB 2.5 MG/3 ML AMPUL NEB SCH ×2 (03:19→03:26)
[2019-06-01 03:34] LABS: ABSOLUTE EOSINOPHILS # (AUTO) 0.2 10^3/uL (0.0-0.6); ABSOLUTE LYMPHOCYTES (AUTO) 1.6 10^3/uL (0.5-4.7); ABSOLUTE MONOCYTES (AUTO) 0.3 10^3/uL (0.1-1.4); ABSOLUTE NEUT (AUTO) 3.6 10^3/uL (1.7-8.2); BASOPHILS % (AUTO) 0.9 % (0-2); EOSINOPHILS % (AUTO) 3.4 % (0-6); HEMATOCRIT 41.3 % (37.9-51.0); HEMOGLOBIN 14.1 g/dL (13.5-17.0); LYMPHOCYTES % (AUTO) 28.3 % (13-45); MEAN CORPUSCULAR HEMOGLOBIN 30.9 pg (27.0-33.4); MEAN CORPUSCULAR HGB CONC 34.1 g/dL (32.0-36.0); MEAN CORPUSCULAR VOLUME 91 fl (80-97); MONOCYTES % (AUTO) 5.4 % (3-13); PLATELET COUNT 289 10^3/uL (150-450); RED BLOOD COUNT 4.56 10^6/uL (4.35-5.55); RED CELL DISTRIBUTION WIDTH 13.5 % (11.5-14.0); TOTAL CELLS COUNTED % (AUTO) 100 %; WHITE BLOOD COUNT 5.8 10^3/uL (4.0-10.5)
[2019-06-01 03:52] LABS: ALBUMIN 3.7 g/dL (3.5-5.0); ALKALINE PHOSPHATASE 71 U/L (38-126); ANION GAP 8 (5-19); ASPARTATE AMINO TRANSFERASE 22 U/L (17-59); BILIRUBIN,DIRECT 0.2 mg/dL (0.0-0.4); BILIRUBIN,TOTAL 0.4 mg/dL (0.2-1.3); BLOOD UREA NITROGEN 10 mg/dL (7-20); CALCIUM 8.4 mg/dL (8.4-10.2); CARBON DIOXIDE 25 mmol/L (22-30); CHLORIDE 109 mmol/L (98-107); GLUCOSE 121 mg/dL (75-110); POTASSIUM 3.9 mmol/L (3.6-5.0); TOTAL PROTEIN 6.2 g/dL (6.3-8.2)
--- NOTE | 2019-06-01 04:21 | ER Document Report ---
ED General - General Chief Complaint: Shortness Of Breath Stated Complaint: SHORTNESS OF BREATH Time Seen by Provider: 06/01/19 03:26 Primary Care Provider: LUCA FOY MD [Primary Care Provider] - Follow up as needed Notes: 54-year-old male with history of COPD who presents for respiratory distress. Upon EMS arrival patient was found to be in respiratory distress and was given 2 DuoNeb treatments, 2 g of magnesium, Solu-Medrol 125 mg and Versed 2 mg. Per patient's partner this is ongoing since early this morning. States she does not know if this may be due to dog dander or if allergic to something in the house. Patient has been trying home nebulizer treatments without relief. Upon arrival to ER patient was placed on BiPAP. Denies any fever, coughing, abdominal pain, chest pain, nausea/vomiting/diarrhea. TRAVEL OUTSIDE OF THE [place] IN LAST 30 DAYS: No - Related Data Allergies/Adverse Reactions: No Known Allergies Allergy (Verified 05/14/19 08:28) Past Medical History - Social History Smoking Status: Unknown if Ever Smoked Family History: Reviewed & Not Pertinent, COPD Pulmonary Medical History: Reports: Hx COPD Psychiatric Medical History: Reports: Hx Depression Review of Systems - Review of Systems Notes: Constitutional: Negative for fever. HENT: Negative for sore throat. Eyes: Negative for visual changes. Cardiovascular: Negative for chest pain. Respiratory: Positive for shortness of breath. Gastrointestinal: Negative for abdominal pain, vomiting or diarrhea. Genitourinary: Negative for dysuria. Musculoskeletal: Negative for back pain. Skin: Negative for rash. Neurological: Negative for headaches, weakness or numbness. 10 point ROS negative except as marked above and in HPI. Physical Exam - Vital signs Vitals: Temp 97.7 F 06/01/19 02:40 - Notes Notes: GENERAL: Well-appearing, well-nourished and in no acute distress. HEAD: Atraumatic, normocephalic. EYES: Extraocular movements intact, sclera anicteric, conjunctiva are normal. NECK: Normal range of motion, supple without lymphadenopathy or JVD. LUNGS: Rhonchi noted throughout. HEART: Regular rate and rhythm without murmurs, rubs or gallops. ABDOMEN: Soft, nontender. No guarding, no rebound. No masses appreciated. EXTREMITIES: Normal range of motion, no pitting or edema. No clubbing or cyanosis. NEUROLOGICAL: Cranial nerves II through XII grossly intact. Normal speech, normal gait. PSYCH: Normal mood, normal affect. SKIN: Warm, Dry, normal turgor, no rashes or lesions noted. Course - Re-evaluation Re-evalutation: 06/01/19 54-year-old male presents with what appears to be a COPD exacerbation. Patient was given 2 duo nebs, magnesium 2 gm, Solu-Medrol 125 mg, Versed by EMS. Patient was placed on BiPAP upon arrival to ER. Work-up was initiated. Patient was also given DuoNeb treatment here in ER today. Chest x-ray was ordered. Rhonchi noted throughout breath sounds. CXR shows emphysema without pneumonia. Labwork is otherwise unremarkable. 06/01/19 06:21 Contacted tank truck operator to page out to whoever is senior clinical consultant for Dr. Foy. Cream Tester will page out to Dr. Bravo. 06/01/19 06:[address] Bravo who requested pt be admitted to [facility] and also requested CT chest without contrast. - Vital Signs Vital signs: Temp Pulse Resp BP Pulse Ox 97.7 F 20 99/72 L 100 06/01/19 02:40 06/01/19 06:01 06/01/19 06:01 06/01/19 06:01 - Laboratory Result Diagrams: 06/01/19 03:10 06/01/19 03:10 Laboratory results interpreted by me: 06/01/19 06/01/19 03:10 05:59 Carbonic Acid 1.37 H ABG pH 7.34 L ABG pCO2 45.4 H ABG pO2 148.8 H ABG O2 Saturation 98.8 H Chloride 109 H Glucose 121 H Total Protein 6.2 L Discharge - Discharge Clinical Impression: COPD with exacerbation Condition: Stable Disposition: ADMITTED INPATIENT Admitting Provider: Lawrence Unit Admitted: [facility] Referrals: LUCA FOY MD [Primary Care Provider] - Follow up as needed
--- NOTE | 2019-06-01 04:32 | RADIOLOGY REPORT (SQ) ---
CLINICAL HISTORY: SOB; O2 sat low COMPARISON: 05/14/2019. TECHNIQUE: XR CHEST 1 VIEW 06/01/2019 2:[address] [employer]ER FINDINGS: Cardiac silhouette is normal in size. There is severe upper lung emphysema. There is no pleural effusion. There is no pneumothorax. There are no acute osseous findings. IMPRESSION: Emphysema without definite pneumonia.
[2019-06-01 06:19] LABS: ARTERIAL BLOOD BASE EXCESS -2.2 mmol/L; ARTERIAL BLOOD FIO2 40%; ARTERIAL BLOOD H2CO3 1.37 mmol/L (1.05-1.35); ARTERIAL BLOOD HCO3 23.8 mmol/L (20-24); ARTERIAL BLOOD O2 SATURATION 98.8 % (94-98); ARTERIAL BLOOD PCO2 45.4 mmHg (35-45); ARTERIAL BLOOD PH 7.34 (7.35-7.45); ARTERIAL BLOOD PO2 148.8 mmHg (80-100); ARTERIAL BLOOD TOTAL CO2 25.2 mmol/L (23-27)
[2019-06-01] MEDS ORDERED: ACETAMINOPHEN 325 MG TABLET PO PRN (06:31)
[2019-06-01 07:52] LABS: ANION GAP 11 (5-19); BLOOD UREA NITROGEN 12 mg/dL (7-20); CALCIUM 9.3 mg/dL (8.4-10.2); CARBON DIOXIDE 26 mmol/L (22-30); CHLORIDE 104 mmol/L (98-107); GLUCOSE 127 mg/dL (75-110); POTASSIUM 4.3 mmol/L (3.6-5.0)
[2019-06-01] MEDS: PANTOPRAZOLE SODIUM 20 MG TABLET.DR PO SCH (07:54)
--- NOTE | 2019-06-01 08:06 | RADIOLOGY REPORT (SQ) ---
EXAM DESCRIPTION: CT CHEST WITHOUT COMPLETED DATE/TIME: 06/01/2019 7:45 am REASON FOR STUDY: dyspnea COMPARISON: 05/03/2018 TECHNIQUE: CT scan performed of the chest without intravenous contrast. Images reviewed with lung, soft tissue and bone windows. Reconstructed coronal and sagittal MPR images reviewed. All images st ored on PACS. All CT scanners at this facility use dose modulation, iterative reconstruction, and/or weight based d osing when appropriate to reduce radiation dose to as low as reasonably achievable (ALARA). [facility]: Dose Right [facility]: CareDose [facility]: Dose Right [facility]: Teradose 4D [facility]: [employer] RADIATION DOSE: CT Rad equipment meets quality standard of care and radiation dose reduction techniq ues were employed. CTDIvol: 6.4 mGy. DLP: 260 mGy-cm. mGy. LIMITATIONS: No technical limitations. FINDINGS: LUNGS AND PLEURA: As seen previously, apical emphysema with extensive bullous change in th e right upper lobe particularly. Lungs are otherwise clear. HILAR AND MEDIASTINAL STRUCTURES: No identified masses or abnormal nodes. No obvious aneurysm. HEART AND VASCULAR STRUCTURES: No aneurysm. No pericardial effusion. UPPER ABDOMEN: No significant findings. Limited exam. THYROID AND OTHER SOFT TISSUES: No masses. No adenopathy. BONES: No significant finding. HARDWARE: None in the chest. OTHER: No other significant findings. IMPRESSION: 1. Severe right upper lobe emphysema, as before. TECHNICAL DOCUMENTATION: JOB ID: [id number] Quality ID # [id number]: Final reports with documentation of one or more dose reduction techniques (e.g., Au tomated exposure control, adjustment of the mA and/or kV according to patient size, use of iterative reconstruction technique) 2010 [employer]- All Rights Reserved Reading location - IP/workstation name: [email or web address]
[2019-06-01] MEDS: IPRATROPIUM/ALBUTEROL 0.5-2.5 MG/3 ML AMPUL NEB SCH ×4 (08:21→20:50)
[2019-06-01] MEDS: DOCUSATE SODIUM 100 MG CAPSULE PO SCH (09:41)
[2019-06-01] MEDS: ENOXAPARIN SODIUM INJ 40 MG/0.4 ML DISP.SYRIN SUBCUT SCH (09:41)
[2019-06-01] MEDS ORDERED: LEVOFLOXACIN 500 MG TABLET PO SCH (10:00)
--- NOTE | 2019-06-01 10:36 | EKG REPORT ---
SEVERITY:- OTHERWISE NORMAL ECG - SINUS TACHYCARDIA : Confirmed by: Benjie Duarte MD 01-Jun-2019 10:35:14
--- NOTE | 2019-06-01 10:48 | PDOC H&P ---
History of Present Illness Admission Date/PCP: 06/01/19 06:34 LUCA FOY MD Patient complains of: Respiratory distressed with shortness of the breath History of Present Illness: ADELSO PATTON is a 54 year old male This is a 54-year-old male with a significant history of the COPD emphysema [id number] admissions since last 1 month came to the emergency department by the EMS because of the significant shortness of the breath and patient was giving the respiratory treatments IV steroids and IV magnesium's and patient initially was put on the BiPAP Patient when I saw it back to the [facility]'s patient's denied any chest pain no short of breath According to the patient's looks like a something allergy to the cat or dog in his new apartments patient is currently live with the dogs but have a never problem in the past Patient is currently not smoking but used to smoke in the past Patient have a longstanding history of the COPD currently using the inhalers and a nebulizer at home's At this point will continues to monitor the patient's Past Medical History Pulmonary Medical History: Reports: Chronic Obstructive Pulmonary Disease (COPD) Psychiatric Medical History: Reports: Depression Social History Information Source: Patient Smoking Status: Former Smoker Frequency of Alcohol Use: None Hx Recreational Drug Use: No Drugs: None Hx Prescription Drug Abuse: No Family History Family History: Reviewed & Not Pertinent, COPD Parental Family History Reviewed: Yes Children Family History Reviewed: Yes Sibling(s) Family History Reviewed.: Yes Medication/Allergy Home Medications: Albuterol Sulfate [Proair HFA Inhalation Aerosol 8.5 gm MDI] 2 puff IH Q4HP PRN 05/14/19 Albuterol Sulfate [Ventolin 0.083% Neb 2.5 mg/3 mL Ampul] 3 ml NEB RTQ6HP PRN 05/14/19 Azithromycin [Zithromax 250 mg Tablet] 500 mg PO DAILY 05/14/19 Fluticasone/Umeclidin/Vilanter [Trelegy 100-62.5-25 Mcg Ellipta 14 Dose/Dpi] 1 puff IH DAILY 05/14/19 Nicotine [Nicoderm 21 mg/24 Hr Transderm Patch] 1 patch TD DAILY 05/14/19 Polyethylene Glycol 3350 [Miralax Powder 17 gm/Packet] 17 gm PO DAILY 05/14/19 Prednisone 10 mg PO DAILY 05/14/19 Psyllium Husk (with Sugar) [Metamucil Packet] 3.4 gm PO DAILY 05/14/19 Roflumilast [Daliresp 500 mcg Tablet] 500 mcg PO DAILY 05/14/19 Allergies/Adverse Reactions: No Known Allergies Allergy (Verified 05/14/19 08:28) Review of Systems Constitutional: ABSENT: chills, fever(s), headache(s), weight gain, weight loss Eyes: ABSENT: visual disturbances Ears: ABSENT: hearing changes Cardiovascular: PRESENT: dyspnea on exertion. ABSENT: chest pain, edema, orthropnea, palpitations Respiratory: PRESENT: cough. ABSENT: hemoptysis Gastrointestinal: ABSENT: abdominal pain, constipation, diarrhea, hematemesis, hematochezia, nausea, vomiting Genitourinary: ABSENT: dysuria, hematuria Musculoskeletal: ABSENT: joint swelling Integumentary: ABSENT: rash, wounds Neurological: ABSENT: abnormal gait, abnormal speech, confusion, dizziness, focal weakness, syncope Psychiatric: ABSENT: anxiety, depression, homidical ideation, suicidal ideation Endocrine: ABSENT: cold intolerance, heat intolerance, menstrual abnormalities, polydipsia, polyuria Hematologic/Lymphatic: ABSENT: easy bleeding, easy bruising, lymphadenopathy Physical Exam Vital Signs: Temp Pulse Resp BP Pulse Ox 97.4 F 83 18 94/63 L 95 06/01/19 08:32 06/01/19 08:32 06/01/19 08:32 06/01/19 08:32 06/01/19 08:32 Intake & Output 05/31/19 06/01/19 06/02/19 06:59 06:59 06:59 Weight 78.9 kg General appearance: PRESENT: no acute distress, well-developed, well-nourished Head exam: PRESENT: atraumatic, normocephalic Eye exam: PRESENT: conjunctiva pink, EOMI, PERRLA. ABSENT: scleral icterus Ear exam: PRESENT: normal external ear exam Mouth exam: PRESENT: moist, tongue midline Neck exam: PRESENT: full ROM. ABSENT: carotid bruit, JVD, lymphadenopathy, thyromegaly Respiratory exam: PRESENT: clear to auscultation jc Cardiovascular exam: PRESENT: RRR. ABSENT: diastolic murmur, rubs, systolic murmur Pulses: PRESENT: normal dorsalis pedis pul, +2 pedal pulses bilateral Vascular exam: PRESENT: normal capillary refill GI/Abdominal exam: PRESENT: normal bowel sounds, soft. ABSENT: distended, guarding, mass, organolmegaly, rebound, tenderness Rectal exam: PRESENT: deferred Musculoskeletal exam: PRESENT: ambulatory Neurological exam: PRESENT: alert, awake, oriented to person, oriented to place, oriented to time, oriented to situation, CN II-XII grossly intact. ABSENT: motor sensory deficit Psychiatric exam: PRESENT: appropriate affect, normal mood. ABSENT: homicidal ideation, suicidal ideation Skin exam: PRESENT: dry, intact, warm. ABSENT: cyanosis, rash Results Laboratory Results: 06/01/19 03:10 06/01/19 07:12 06/01/19 06/01/19 06/01/19 03:10 03:10 05:59 WBC 5.8 RBC 4.56 Hgb 14.1 Hct 41.3 MCV 91 MCH 30.9 MCHC 34.1 RDW 13.5 Plt Count 289 Seg Neutrophils % 62.0 Carbonic Acid 1.37 H HCO3/H2CO3 Ratio 17:1 ABG pH 7.34 L ABG pCO2 45.4 H ABG pO2 148.8 H ABG HCO3 23.8 ABG O2 Saturation 98.8 H ABG Base Excess -2.2 FiO2 40% Sodium 142.2 Potassium 3.9 Chloride 109 H Carbon Dioxide 25 Anion Gap 8 BUN 10 Creatinine 1.07 Est GFR ( Amer) > 60 Glucose 121 H Calcium 8.4 Total Bilirubin 0.4 AST 22 Alkaline Phosphatase 71 Total Protein 6.2 L Albumin 3.7 06/01/19 07:12 WBC RBC Hgb Hct MCV MCH MCHC RDW Plt Count Seg Neutrophils % Carbonic Acid HCO3/H2CO3 Ratio ABG pH ABG pCO2 ABG pO2 ABG HCO3 ABG O2 Saturation ABG Base Excess FiO2 Sodium 140.5 Potassium 4.3 Chloride 104 Carbon Dioxide 26 Anion Gap 11 BUN 12 Creatinine 1.06 Est GFR ( Amer) > 60 Glucose 127 H Calcium 9.3 Total Bilirubin AST Alkaline Phosphatase Total Protein Albumin 06/01/19 03:10 Troponin I < 0.012 Impressions: Chest X-Ray 06/01/19 02:59 IMPRESSION: Emphysema without definite pneumonia. Chest CT 06/01/19 06:31 IMPRESSION: 1. Severe right upper lobe emphysema, as before. Assessment & Plan - Diagnosis (1) COPD with exacerbation Is this a current diagnosis for this admission?: Yes Plan: Start the patient on IV steroid and nebulizer treatments (2) Chronic obstructive pulmonary disease Qualifiers: COPD type: emphysema Emphysema type: unspecified Qualified Code(s): J43.9 - Emphysema, unspecified Is this a current diagnosis for this admission?: Yes Plan: I think patient with back to back issue with the emphysema COPD might get a benefit from the pulmonary evaluations (3) Hypoxemia Is this a current diagnosis for this admission?: Yes Plan: Currently all resolved - Time Time Spent: 30 to 50 Minutes Medications reviewed and adjusted accordingly: Yes Anticipated discharge: Home Within: Other - Inpatient Certification Based on my medical assessment, after consideration of the patient's comorbidities, presenting symptoms, or acuity I expect that the services needed warrant INPATIENT care.: Yes I certify that my determination is in accordance with my understanding of Medicare's requirements for reasonable and necessary INPATIENT services [42 CFR 412.3e].: Yes Medical Necessity: Failure to Improve With Outpatient Therapy, Significant C omorbidiites Make Outpatient Treatment Too Risky, Need Close Monitoring Due to Risk of Patient Decompensation Post Hospital Care: D/C Remote Sensing Surveyor Documentation - Plan Summary Plan Summary: Admit the patient in IMCU see MD orders
[2019-06-01] MEDS ORDERED: METHYLPREDNISOLONE INJ 125 MG/2 ML SDV IV SCH (12:00)
[2019-06-01] MEDS: METHYLPREDNISOLONE INJ 125 MG/2 ML SDV IV SCH ×2 (13:46→21:29)
[2019-06-01] MEDS ORDERED: POLYETHYLENE GLYCOL 3350 POWDER 17 GM/1 PACKET PO PRN (15:15)
[2019-06-02] MEDS: METHYLPREDNISOLONE INJ 125 MG/2 ML SDV IV SCH ×3 (05:26→21:23)
[2019-06-02] MEDS: PANTOPRAZOLE SODIUM 20 MG TABLET.DR PO SCH (05:26)
[2019-06-02 06:19] LABS: ABSOLUTE LYMPHOCYTES (AUTO) 0.8 10^3/uL (0.5-4.7); ABSOLUTE MONOCYTES (AUTO) 0.3 10^3/uL (0.1-1.4); ABSOLUTE NEUT (AUTO) 10.7 10^3/uL (1.7-8.2); BASOPHILS % (AUTO) 0.1 % (0-2); HEMATOCRIT 40.2 % (37.9-51.0); HEMOGLOBIN 13.9 g/dL (13.5-17.0); LYMPHOCYTES % (AUTO) 6.7 % (13-45); MEAN CORPUSCULAR HGB CONC 34.5 g/dL (32.0-36.0); MEAN CORPUSCULAR VOLUME 90 fl (80-97); MONOCYTES % (AUTO) 2.5 % (3-13); PLATELET COUNT 327 10^3/uL (150-450); RED BLOOD COUNT 4.48 10^6/uL (4.35-5.55); RED CELL DISTRIBUTION WIDTH 13.5 % (11.5-14.0); SEGMENTED NEUTROPHILS % (AUTO) 90.7 % (42-78); TOTAL CELLS COUNTED % (AUTO) 100 %
[2019-06-02 07:00] LABS: WHITE BLOOD COUNT 11.8 10^3/uL (4.0-10.5)
[2019-06-02] MEDS: IPRATROPIUM/ALBUTEROL 0.5-2.5 MG/3 ML AMPUL NEB SCH ×4 (08:35→20:35)
[2019-06-02] MEDS: FLUTICASONE/UMECLIDIN/VILANTER 100-62.5-25 MCG/DOSE IH SCH (09:44)
[2019-06-02] MEDS ORDERED: (PENDING PHARMACY ID) (Roflumilast [Daliresp 500 Mcg Tablet] 500 MCG) PO SCH (10:00)
[2019-06-02] MEDS: NICOTINE 21 MG/24 HR PATCH.TD24 TD SCH (10:09)
[2019-06-02] MEDS: DOCUSATE SODIUM 100 MG CAPSULE PO SCH (10:09)
[2019-06-02] MEDS: ENOXAPARIN SODIUM INJ 40 MG/0.4 ML DISP.SYRIN SUBCUT SCH (10:09)
[2019-06-02] MEDS: ROFLUMILAST 500 MCG TABLET PO SCH (10:09)
[2019-06-02] MEDS: RIFAXIMIN 550 MG TABLET PO SCH (11:08)
--- NOTE | 2019-06-02 21:45 | PDOC PROGRESS REPORT ---
Subjective Progress Note for:: 06/02/19 Subjective:: Patient was admitted for evaluation of respiratory symptoms, He was admitted because of shortness of breath, he was seen by pulmonary, schedule for swallow study, this will be done in the morning Reason For Visit: COPD ACUTE Physical Exam Vital Signs: Temp Pulse Resp BP Pulse Ox 98.0 F 72 15 121/72 95 06/02/19 20:18 06/02/19 20:35 06/02/19 20:35 06/02/19 20:18 06/02/19 20:35 Intake & Output 06/01/19 06/02/19 06/03/19 06:59 06:59 06:59 Intake Total 2020 Balance 2020 Weight 78.9 kg 77.1 kg General appearance: PRESENT: no acute distress Eye exam: PRESENT: PERRLA Respiratory exam: PRESENT: clear to auscultation jc Cardiovascular exam: PRESENT: +S1, +S2 GI/Abdominal exam: PRESENT: soft Neurological exam: PRESENT: alert Results Laboratory Results: 06/02/19 05:58 06/01/19 07:12 06/02/19 05:58 WBC 11.8 H D RBC 4.48 Hgb 13.9 Hct 40.2 MCV 90 MCH 31.0 MCHC 34.5 RDW 13.5 Plt Count 327 Seg Neutrophils % 90.7 H 06/02/19 04:42 Sputum Gram Stain - Final 06/02/19 04:42 Sputum Sputum Culture - Final 06/01/19 03:10 Troponin I < 0.012 Impressions: Chest X-Ray 06/01/19 02:59 IMPRESSION: Emphysema without definite pneumonia. Chest CT 06/01/19 06:31 IMPRESSION: 1. Severe right upper lobe emphysema, as before. Assessment & Plan - Diagnosis (1) COPD with exacerbation Is this a current diagnosis for this admission?: Yes - Time Time Spent with patient: 25-34 minutes
[2019-06-03] MEDS: PANTOPRAZOLE SODIUM 20 MG TABLET.DR PO SCH (06:29)
[2019-06-03] MEDS: METHYLPREDNISOLONE INJ 125 MG/2 ML SDV IV SCH (06:30)
[2019-06-03 06:33] LABS: HEMATOCRIT 40.6 % (37.9-51.0); MEAN CORPUSCULAR HEMOGLOBIN 30.9 pg (27.0-33.4); MEAN CORPUSCULAR HGB CONC 34.4 g/dL (32.0-36.0); MEAN CORPUSCULAR VOLUME 90 fl (80-97); PLATELET COUNT 345 10^3/uL (150-450); RED BLOOD COUNT 4.52 10^6/uL (4.35-5.55); RED CELL DISTRIBUTION WIDTH 13.4 % (11.5-14.0); WHITE BLOOD COUNT 17.9 10^3/uL (4.0-10.5)
[2019-06-03 07:12] LABS: ABSOLUTE LYMPHOCYTES# (MANUAL) 1.8 10^3/uL (0.5-4.7); ABSOLUTE MONOCYTES # (MANUAL) 0.2 10^3/uL (0.1-1.4); BASOPHILS % (MANUAL) 0 % (0-2); EOSINOPHILS % (MANUAL) 0 % (0-6); LYMPHOCYTES % (MANUAL) 10 % (13-45); MONOCYTES % (MANUAL) 1 % (3-13); PLATELET COMMENT ADEQUATE; RBC MORPHOLOGY COMMENT NORMO-CYTIC/CHROMIC; SEGMENTED NEUTROPHILS % (MAN) 89 % (42-78); TOTAL CELLS COUNTED 100
[2019-06-03] MEDS: IPRATROPIUM/ALBUTEROL 0.5-2.5 MG/3 ML AMPUL NEB SCH (07:53)
[2019-06-03] MEDS: ENOXAPARIN SODIUM INJ 40 MG/0.4 ML DISP.SYRIN SUBCUT SCH (09:19)
[2019-06-03] MEDS: RIFAXIMIN 550 MG TABLET PO SCH (09:19)
[2019-06-03] MEDS: NICOTINE 21 MG/24 HR PATCH.TD24 TD SCH (09:19)
[2019-06-03] MEDS: FLUTICASONE/UMECLIDIN/VILANTER 100-62.5-25 MCG/DOSE IH SCH (09:19)
[2019-06-03] MEDS: ROFLUMILAST 500 MCG TABLET PO SCH (09:19)
[2019-06-03] MEDS: DOCUSATE SODIUM 100 MG CAPSULE PO SCH (09:20)
--- NOTE | 2019-06-03 09:57 | ST Inp Modified Barium Swallow ---
Medical Diagnosis - Medical Diagnoses Medical Diagnosis Description & ICD-10 Code(s): COPD with exacerbation - ICD-10 Tx Diagnosis Coding (1) Dysphagia ICD-10 Code(s): R13.10 - DYSPHAGIA, UNSPECIFIED ST Inpatient [facility] [place] - General Date: 06/03/19 Date of Onset: 06/01/19 - admission date - History -: Medical - per EMR: patient admitted 06/01 with shortness of breath and respiraotry distress. Prior medical history includes COPD, and chest x-ray revealed severe right upper lobe emphysema. Medications: Medications Reviewed Allergies: No known allergies - Subjective Current Nutritional Means: PO Current PO Diet: Regular Current Symptoms: other - no dysphagia symptoms Pain: Patient reports, 0/5 - Objective Assessment: Upright, Left Lateral - Food Trials Food Trials Used: Thin liquids, Pureed, Regular The Patient: Was Able to Self Feed - Assessment Labial Function: Within Normal Limits Lingual Function: Within Normal Limits Mandibular Function: Within Normal Limits Dentition: Partial Velo-Pharyngeal Function: Unremarkable Laryngeal Function: clear voicing - Pharyngeal Stage Initiation of Pharyngeal Stage: Normal Decreased Laryngeal Elevation: No Reduced Velo-Pharyngeal Closure: no Reduced Pressure Generation: No Reduced Tongue Base Retraction: No Pre-Swallowing Pooling in Valleculae: Mild Pre-Swallowing Pooling in Pyriforms: Mild - seen x1 with material from oral cavity spilling to pyriform during mastication Reduced Thyro-Hyiod Approximation: No Reduced Epiglottic Excursion: No Reduced Pharyngeal Peristalsis: No Multiple Swallows With: Effective Post Swallow Residuals in Valleculae: None Post Swallow Residuals in Pyriforms: None Pahryngeal Stage Comments: Normal swallow function observed. - Impression/Summary Laryngeal Penetration: Yes - occasional penetration of thin liquids seen, redirected easily Tracheal Aspiration: no Patient Presents With: Normal swallow at eval Risk of Aspiration: Minimal - underlying COPD does place patient at higher risk of aspiration, however, none seen on study - Recommendations Solid Diet Recommendations: Regular Liquid Diet Recommendations: Thin Strict Aspitarion Precautions: Yes Dysphagia Therapy with SPINNING FRAME CLEANER: No Recommended Techniques: Fully Upright During Meal - Time Total Time: 15 Total Timed Minutes: 15
[2019-06-03 11:01] VITALS: BP 107/78
--- NOTE | 2019-06-03 11:21 | RADIOLOGY REPORT (SQ) ---
EXAM DESCRIPTION: BARIUM SWALLOW ESOPHAGUS COMPLETED DATE/TIME: 06/03/2019 8:24 am REASON FOR STUDY: recurrent pna COMPARISON: None. TECHNIQUE: Under fluoroscopic guidance, patient ingested effervescent granules followed by thick and thin barium. Fluoroscopic spot images and routine radiographic images acquired and stored on PACS. 12 MM BARIUM TABLET GIVEN: Barium tablet passed easily through the esophagus and into the stomach wit hout delay. LIMITATIONS: None. FLUOROSCOPY TIME: FLUORO TIME: 1.9 minutes 5 images saved to PACS. FINDINGS: NEUROMUSCULAR COORDINATION OF SWALLOW: Normal. No aspiration. ESOPHAGEAL MOTILITY: Normal peristalsis. No esophageal spasm. ESOPHAGEAL MUCOSA: Normal mucosa without masses or ulceration. GASTRO-ESOPHAGEAL JUNCTION: No hiatal hernia. Moderate gastroesophageal reflux seen. NON-GI TRACT STRUCTURES: No significant finding. OTHER: No other significant finding. IMPRESSION: MODERATE GASTROESOPHAGEAL REFLUX. OTHERWISE UNREMARKABLE STUDY. RECOMMENDATION: NONE COMMENT: Quality ID 145: Final reports for procedures using fluoroscopy that document radiation exp osure indices, or exposure time and number of fluorographic images (if radiation exposure indices are not available) TECHNICAL DOCUMENTATION: JOB ID: [id number] [employer]- All Rights Reserved Reading location - IP/workstation name: [email or web address]
--- NOTE | 2019-06-03 11:22 | RADIOLOGY REPORT (SQ) ---
EXAM DESCRIPTION: COOKIE SWALLOW COMPLETED DATE/TIME: 06/03/2019 8:18 am REASON FOR STUDY: dysphagia COMPARISON: Barium swallow same day TECHNIQUE: Videofluoroscopic swallowing examination was performed in conjunction with speech patholo gy. Videofluoroscopic imaging was obtained and reviewed and these are the findings: RADIATION DOSE: Fluoro time 1.55 minutes 1 images saved to PACS. LIMITATIONS: None FINDINGS: The patient was brought into the fluoro room and placed upright on a modified barium swall ow chair. The patient was then given multiple consistencies mixed with barium to swallow under live fluoroscopic video guidance. According to the Speech Pathologist there was laryngeal penetration see n with thin barium. No aspiration identified. All other consistencies were swallowed without incide nt. Please refer to the speech pathology report for further details. IMPRESSION: LARYNGEAL PENETRATION WITHOUT ASPIRATION SEEN WITH THIN BARIUM. PLEASE SEE SPEECH PATHOL OGIST REPORT FOR OTHER FINDINGS AND RECOMMENDATIONS. COMMENT: NONE Quality ID 145: Final reports for procedures using fluoroscopy that document radiation exposure kosta lemuel, or exposure time and number of fluorographic images (if radiation exposure indices are not avail able) TECHNICAL DOCUMENTATION: JOB ID: [id number] [employer]- All Rights Reserved Reading location - IP/workstation name: [email or web address]
--- NOTE | 2019-06-03 20:46 | PDOC DISCHARGE SUMMARY ---
Impression - Admit/DC Date/PCP Admission Date/Primary Care Provider: 06/01/19 06:34 LUCA FOY MD Discharge Date: 06/03/19 - Discharge Diagnosis (1) COPD with exacerbation Is this a current diagnosis for this admission?: Yes - Additional Information Resuscitation Status: Full Code Discharge Diet: As Tolerated Discharge Activity: Activity As Tolerated, Balance Activity w/Rest Referrals: LUCA FOY MD [Primary Care Provider] - 06/05/19 10:45 am Home Medications: Albuterol Sulfate [Proair HFA Inhalation Aerosol 8.5 gm MDI] 1 puff IH DAILYP PRN 06/01/19 Fluticasone/Umeclidin/Vilanter [Trelegy 100-62.5-25 Mcg Ellipta 14 Dose/Dpi] 1 puff IH DAILY 06/01/19 Nicotine [Nicoderm 21 mg/24 Hr Transderm Patch] 1 patch TD DAILY 06/01/19 Rifaximin [Xifaxan 550 Mg Tablet] 550 mg PO DAILY 06/01/19 Roflumilast [Daliresp 500 mcg Tablet] 500 mcg PO DAILY 06/01/19 History of Present Illiness History of Present Illness: ADELSO PATTON is a 54 year old male,He was admitted when he presented with acute shortness of breath, he has a history of underlining COPD Hospital Course Hospital Course: Patient was admitted when he presented with acute shortness of breath due to COPD, he has underlining COPD, he was seen by pulmonary, he underwent cookie swallow/esophagram which was normal. Patient felt he may have an allergy, he has a dog, he thought his symptoms usually is triggered when he is in contact with his dog, he will follow with me in the office for allergy testing. Physical Exam Vital Signs: Temp Pulse Resp BP Pulse Ox 98.6 F 87 17 107/78 97 06/03/19 10:58 06/03/19 10:58 06/03/19 10:58 06/03/19 10:58 06/03/19 10:58 Intake & Output 06/02/19 06/03/19 06/04/19 06:59 06:59 06:59 Intake Total 2020 760 Balance 2020 760 Weight 77.1 kg 77.7 kg General appearance: PRESENT: no acute distress Eye exam: PRESENT: PERRLA Respiratory exam: PRESENT: clear to auscultation jc Cardiovascular exam: PRESENT: +S1, +S2 Neurological exam: PRESENT: alert, CN II-XII grossly intact Results Laboratory Results: WBC 17.9 10^3/uL (4.0-10.5) H 06/03/19 05:58 RBC 4.52 10^6/uL (4.35-5.55) 06/03/19 05:58 Hgb 14.0 g/dL (13.5-17.0) 06/03/19 05:58 Hct 40.6 % (37.9-51.0) 06/03/19 05:58 MCV 90 fl (80-97) 06/03/19 05:58 MCH 30.9 pg (27.0-33.4) 06/03/19 05:58 MCHC 34.4 g/dL (32.0-36.0) 06/03/19 05:58 RDW 13.4 % (11.5-14.0) 06/03/19 05:58 Plt Count 345 10^3/uL (150-450) 06/03/19 05:58 Lymph % (Auto) Not Reportable 06/03/19 05:58 [place] % (Auto) Not Reportable 06/03/19 05:58 Eos % (Auto) Not Reportable 06/03/19 05:58 Baso % (Auto) Not Reportable 06/03/19 05:58 Absolute Neuts (auto) Not Reportable 06/03/19 05:58 Absolute Lymphs (auto) Not Reportable 06/03/19 05:58 Absolute Monos (auto) Not Reportable 06/03/19 05:58 Absolute Eos (auto) Not Reportable 06/03/19 05:58 Absolute Basos (auto) Not Reportable 06/03/19 05:58 Total Counted 100 06/03/19 05:58 Seg Neutrophils % Not Reportable 06/03/19 05:58 Seg Neuts % (Manual) 89 % (42-78) H 06/03/19 05:58 Lymphocytes % (Manual) 10 % (13-45) L 06/03/19 05:58 Monocytes % (Manual) 1 % (3-13) L 06/03/19 05:58 Eosinophils % (Manual) 0 % (0-6) 06/03/19 05:58 Basophils % (Manual) 0 % (0-2) 06/03/19 05:58 Abs Neuts (Manual) 15.9 10^3/uL (1.7-8.2) H 06/03/19 05:58 Abs Lymphs (Manual) 1.8 10^3/uL (0.5-4.7) 06/03/19 05:58 Abs Monocytes (Manual) 0.2 10^3/uL (0.1-1.4) 06/03/19 05:58 Absolute Eos (Manual) 0.0 10^3/uL (0.0-0.6) 06/03/19 05:58 Abs Basophils (Manual) 0.0 10^3/uL (0.0-0.2) 06/03/19 05:58 Platelet Comment ADEQUATE 06/03/19 05:58 RBC Morph Comment NORMO-CYTIC/CHROMIC 06/03/19 05:58 Carbonic Acid 1.37 mmol/L (1.05-1.35) H 06/01/19 05:59 HCO3/H2CO3 Ratio 17:1 06/01/19 05:59 ABG pH 7.34 (7.35-7.45) L 06/01/19 05:59 ABG pCO2 45.4 mmHg (35-45) H 06/01/19 05:59 ABG pO2 148.8 mmHg (80-100) H 06/01/19 05:59 ABG HCO3 23.8 mmol/L (20-24) 06/01/19 05:59 ABG Total CO2 25.2 mmol/L (23-27) 06/01/19 05:59 ABG O2 Saturation 98.8 % (94-98) H 06/01/19 05:59 ABG Base Excess -2.2 mmol/L 06/01/19 05:59 FiO2 40% 06/01/19 05:59 Sodium 140.5 mmol/L (137-145) 06/01/19 07:12 Potassium 4.3 mmol/L (3.6-5.0) 06/01/19 07:12 Chloride 104 mmol/L (98-107) 06/01/19 07:12 Carbon Dioxide 26 mmol/L (22-30) 06/01/19 07:12 Anion Gap 11 (5-19) 06/01/19 07:12 BUN 12 mg/dL (7-20) 06/01/19 07:12 Creatinine 1.06 mg/dL (0.52-1.25) 06/01/19 07:12 Est GFR ( Amer) > 60 (>60) 06/01/19 07:12 Est GFR (MDRD) Non-Af > 60 (>60) 06/01/19 07:12 Glucose 127 mg/dL (75-110) H 06/01/19 07:12 Calcium 9.3 mg/dL (8.4-10.2) 06/01/19 07:12 Total Bilirubin 0.4 mg/dL (0.2-1.3) 06/01/19 03:10 Direct Bilirubin 0.2 mg/dL (0.0-0.4) 06/01/19 03:10 Neonat Total Bilirubin Not Reportable 06/01/19 03:10 Neonat Direct Bilirubin Not Reportable 06/01/19 03:10 Neonat Indirect Bili Not Reportable 06/01/19 03:10 AST 22 U/L (17-59) 06/01/19 03:10 ALT 19 U/L (<50) 06/01/19 03:10 Alkaline Phosphatase 71 U/L (38-126) 06/01/19 03:10 Troponin I < 0.012 ng/mL 06/01/19 03:10 Total Protein 6.2 g/dL (6.3-8.2) L 06/01/19 03:10 Albumin 3.7 g/dL (3.5-5.0) 06/01/19 03:10 06/01/19 03:10 Troponin I < 0.012 Impressions: Chest X-Ray 06/01/19 02:59 IMPRESSION: Emphysema without definite pneumonia. Chest CT 06/01/19 06:31 IMPRESSION: 1. Severe right upper lobe emphysema, as before. Esophagus X-Ray 06/03/19 00:00 IMPRESSION: MODERATE GASTROESOPHAGEAL REFLUX. OTHERWISE UNREMARKABLE STUDY. Modified Barium Swallow 06/03/19 00:00 IMPRESSION: LARYNGEAL PENETRATION WITHOUT ASPIRATION SEEN WITH THIN BARIUM. PLEASE SEE SPEECH PATHOLOGIST REPORT FOR OTHER FINDINGS AND RECOMMENDATIONS. Stroke Is this a Stroke Patient?: No Acute Heart Failure - Is this a Heart Failure Patient?: No
[2019-06-04 05:37] LABS: M001-IGE PENICILLIUM CHRYSOGEN <0.10 kU/L (Class 0); M002-IGE CLADOSPORIUM HERBARUM <0.10 kU/L (Class 0); M003-IGE ASPERGILLUS FUMIGATUS <0.10 kU/L (Class 0); M004-IGE MUCOR RACEMOSUS <0.10 kU/L (Class 0); M005-IGE CANDIDA ALBICANS <0.10 kU/L (Class 0); M006-IGE ALTERNARIA ALTERNATA <0.10 kU/L (Class 0); M009-IGE FUSARIUM PROLIFERATUM <0.10 kU/L (Class 0); M012-IGE AUREOBASIDI PULLULANS <0.10 kU/L (Class 0); M013-IGE PHOMA BETAE <0.10 kU/L (Class 0); M014-IGE EPICOCCUM PURPURASCEN <0.10 kU/L (Class 0)
[2019-06-04 08:14] LABS: M010-IGE STEMPHYLIUM HERBARUM <0.10 kU/L (Class 0)
== END 2019-06-03 11:24 | disposition home or self-care (01) | DRG 192 ==
LOC: ER 02:39 → EH 06:34 → 3N 08:05 → 3S 16:12
PROVIDERS: ADMIT Family Medicine; ATTEND Internal Medicine
DX: J43.9 Emphysema, unspecified (principal); F32.9 Major depressive disorder, single episode, unspecified; Z79.51 Long term (current) use of inhaled steroids; Z79.52 Long term (current) use of systemic steroids; Z79.899 Other long term (current) drug therapy
CPT/HCPCS: 36415; 71045; 71250; 74220; 74230; 80053; 82785; 82803; 84484; 85025; 86003; 87040; 87205; 93005; 93010; 94640; 94660; 99285; A9270-GY; J1650; J2930; J3490; J7620

== ENCOUNTER → 2019-10-06 | Outpatient (CLI) | payer BC ==
[2019-10-06 12:45] LABS: HEMATOCRIT 43.9 % (37.9-51.0); HEMOGLOBIN 15.8 g/dL (13.5-17.0); MEAN CORPUSCULAR HEMOGLOBIN 31.9 pg (27.0-33.4); MEAN CORPUSCULAR HGB CONC 36.1 g/dL (32.0-36.0); MEAN CORPUSCULAR VOLUME 89 fl (80-97); PLATELET COUNT 252 10^3/uL (150-450); RED BLOOD COUNT 4.96 10^6/uL (4.35-5.55); RED CELL DISTRIBUTION WIDTH 12.8 % (11.5-14.0); WHITE BLOOD COUNT 5.7 10^3/uL (4.0-10.5)
[2019-10-06 13:04] LABS: ALBUMIN 4.6 g/dL (3.5-5.0); ALKALINE PHOSPHATASE 77 U/L (38-126); ANION GAP 8 (5-19); ASPARTATE AMINO TRANSFERASE 27 U/L (17-59); BILIRUBIN,TOTAL 0.3 mg/dL (0.2-1.3); BLOOD UREA NITROGEN 12 mg/dL (7-20); CALCIUM 9.2 mg/dL (8.4-10.2); CARBON DIOXIDE 24 mmol/L (22-30); CHLORIDE 105 mmol/L (98-107); GLUCOSE 112 mg/dL (75-110); POTASSIUM 4.3 mmol/L (3.6-5.0); TOTAL PROTEIN 7.2 g/dL (6.3-8.2)
== END ==
LOC: OD 11:40
PROVIDERS: ATTEND Internal Medicine Gastroenterology
DX: R10.9 Unspecified abdominal pain (principal)
CPT/HCPCS: 36415; 80048; 80076; 83690; 85027

== ENCOUNTER → 2019-10-22 | Outpatient (CLI) | payer BC ==
--- NOTE | 2019-10-22 10:39 | RADIOLOGY REPORT (SQ) ---
EXAM DESCRIPTION: U/S ABDOMEN LIMITED W/O DOP IMAGES COMPLETED DATE/TIME: 10/22/2019 10:29 am REASON FOR STUDY: ABD PAIN (R10.9) R10.9 UNSPECIFIED ABDOMINAL PAIN COMPARISON: None. TECHNIQUE: Dynamic and static grayscale images acquired of the abdomen and recorded on PACS. Additio nal selected color Doppler and spectral images recorded. LIMITATIONS: None. FINDINGS: PANCREAS: No masses. Visualized pancreatic duct normal caliber. LIVER: No focal lesions. Heterogeneous echotexture. Liver measures 17 cm in maximal span. LIVER VASCULATURE: Normal directional flow of the main portal vein and hepatic veins. GALLBLADDER: Cholelithiasis. No secondary evidence of acute cholecystitis. ULTRASOUND-DETECTED ABREU'S SIGN: Negative. INTRAHEPATIC DUCTS AND COMMON DUCT: CBD and intrahepatic ducts normal caliber. No filling defects. INFERIOR VENA CAVA: Normal flow. AORTA: No aneurysm. RIGHT KIDNEY: Normal size measuring 9.2 cm. Normal echogenicity. No solid or suspicious masses. No h ydronephrosis. No calcifications. PERITONEAL AND RIGHT PLEURAL SPACE: No ascites or effusions. OTHER: No other significant findings. IMPRESSION: 1. Cholelithiasis without secondary evidence of acute cholecystitis. 2. Borderline enlarged liver with heterogeneous echotexture which can be seen with intrinsic liver d isease. Recommend correlation with LFTs. TECHNICAL DOCUMENTATION: JOB ID: [id number] [employer]- All Rights Reserved Reading location - IP/workstation name: [email or web address]
== END ==
LOC: RAD 09:08
PROVIDERS: ATTEND Internal Medicine Gastroenterology
DX: K80.20 Calculus of gallbladder without cholecystitis without obstruction (principal); R10.9 Unspecified abdominal pain
CPT/HCPCS: 76705